=== PATIENT | male | born 1980 | race Caucasian/White ===

== ENCOUNTER 2016-12-09 11:20 | Emergency (ER) | payer SELFPAY ==
[~2016-12-09] VITALS: Wt 59.0 kg
--- NOTE | 2016-12-09 11:56 | ERD ---
ER Documentation Chief Complaint Date/Time DATE: 12/09/16 TIME: 11:55 Chief Complaint BILAT EYE REDNESS, ONSET 2 DFAYS HPI 36 yo male comes in with bilateral conjunctival injection and drainage for 2 days. He states that he has some sick contacts at home, his sons who had discharge bilaterally last week. Has no difficulty seeing. No fevers or chills. ROS All systems reviewed and are negative except as per history of present illness. Medications Home Meds Active Scripts Polymyxin B Sulfate-TMP* (Polymyxin B-TMP Eye Drops*) 10 Ml Drops, 1 DROP BOTH EYES QID for 7 Days, EA Prov:LAZARO MENDOZA PA-C 12/09/16 Reported Medications [None] No Conflict Check 08/17/11 Allergies Allergies: Coded Allergies: No Known Drug Allergies (Verified Allergy, Unknown, 12/09/16) Uncoded Allergies: NONE (Allergy, Unknown, 12/09/16) PMhx/Soc History of Surgery: Yes (3YRS OLD) Anesthesia Reaction: No Hx Neurological Disorder: No Hx Respiratory Disorders: No Hx Psychiatric Problems: No Hx Miscellaneous Medical Probl: No Hx Alcohol Use: No (OCCASIONALLY) Hx Substance Use: No Hx Tobacco Use: Yes Smoking Status: Current every day smoker Physical Exam Vitals Vital Signs Date Time Temp Pulse Resp B/P Pulse Ox O2 Delivery O2 Flow Rate FiO2 12/09/16 12:27 98.4 71 18 118/83 98 Room Air 12/09/16 11:23 97.1 82 18 129/75 98 Physical Exam General: Well-developed, well-nourished. The patient appears in no acute distress. HEENT: Head is normocephalic, atraumatic. No scleral icterus. Conjunctival injection bilaterally. No periorbital swelling, extraocular movements intact, eyes are Sony no foreign body seen. Neck: Supple. Nontender. Lungs: Clear to auscultation. Normal air movement. Heart: Regular rate and rhythm. S1 and S2 are normal. No murmurs, gallops, or rubs. Abdomen: Nondistended. Extremities: No clubbing or cyanosis. Moving extremities x 4. No weakness. Neurologic: Alert and oriented 3. No focal deficits. Normal speech and gait. Skin: Normal turgor. No rash or lesions. Procedures/MDM 36-year-old male presents with conjunctivitis, no signs of periorbital swelling , signs of orbital cellulitis. Patient's ocular symptoms have stabilized while they have been evaluated in the department and are appropriate for outpatient work up. No evidence of ruptured globe, retinal detachment, acute angle closure glaucoma , or deep space infection. Departure Diagnosis: Primary Impression: Conjunctivitis Condition: Good LAZARO MENDOZA PA-C Dec 09, 2016 11:56
[2016-12-09] MEDS ORDERED: POLY10DR19 BOTH EYES (11:57)
[2016-12-09 12:27] VITALS: BP 118/83; PULSE 71; RESP 18; TEMP 98.4
== END 2016-12-09 12:29 | disposition home or self-care (01) ==
LOC: FTE 11:20
DX: H10.9 Unspecified conjunctivitis (principal); F17.210 Nicotine dependence, cigarettes, uncomplicated
CPT/HCPCS: 99283